=== PATIENT | male | born 1970 | race Caucasian/White ===

== ENCOUNTER 2019-01-10 22:57 | Emergency (ER) | payer SELFPAY ==
[~2019-01-10] VITALS: Ht 182.9 cm; Wt 77.1 kg
[2019-01-11] MEDS ORDERED: GUAI600T33 PO (00:11)
== END 2019-01-11 01:16 | disposition home or self-care (01) ==
LOC: ER 22:57
DX: J33.9 Nasal polyp, unspecified (principal); Z88.8 Allergy status to other drugs, medicaments and biological substances; Z91.010 Allergy to peanuts; Z91.018 Allergy to other foods; Z79.899 Other long term (current) drug therapy
CPT/HCPCS: 99282